=== PATIENT | female | born 1955 | race Caucasian/White ===

== ENCOUNTER → 2017-01-17 | Outpatient (CLI) | payer BC, OTHER ==
[~2017-01-17] MED LIST: B-COTAB18 PO; BUPR-79 PO; CHOL1000 PO; MRLP17 PO; RESV1POW PO; VITA400C15 PO; VITACAP26 PO
--- NOTE | 2017-01-17 12:42 | MAMMOGRAPHY REPORT ---
UNILATERAL RIGHT DIGITAL DIAGNOSTIC MAMMOGRAM TOMOSYNTHESIS WITH CAD AND TARGETED RIGHT ULTRASOUND: 01/17/2017 CLINICAL HISTORY: The patient reports a palpable lump with associated erythema in her right breast s november. The lump has decreased in size and is less erythematous since when she first felt it . TECHNIQUE: Breast tomosynthesis in addition to standard 2D mammography was performed. Current study was also evaluated with a Computer Aided Detection (CAD) system. Right CC and MLO 2-D and tomosynt hesis images were obtained. COMPARISON: Comparison is made to exams dated: 04/04/2016 mammogram, 03/31/2015 mammogram, 03/27/2014 m ammogram, 03/24/2013 mammogram, 03/13/2012 mammogram, and 03/10/2011 mammogram - [facility] enter. BREAST COMPOSITION: There are scattered areas of fibroglandular density in the right breast. FINDINGS: A triangle marker khan the site of the palpable lump in the right 6:00 breast. No suspic ious masses or other suspicious mammographic abnormalities are evident in this region. The remainde r of the right breast is stable compared to prior exams, without suspicious masses, calcifications, or areas of architectural distortion noted. Targeted ultrasound was performed of the area of the palpable lump pointed out by the patient, in th e right breast at approximately 5:00, 6 cm from the nipple. At the site of the palpable lump there is an intradermal ill-defined hypoechoic mass which measures 5 x 1 x 4 mm. Given that the mass is l ocated within the skin, it is benign and likely represents a resolving inflamed epidermal inclusion/ sebaceous cyst. No mass or other abnormality is seen within the underlying breast parenchyma. IMPRESSION: ACR BI-RADS CATEGORY 2: BENIGN, TARGETED ULTRASOUND ACR BI-RADS CATEGORY 2: BENIGN Intradermal 5 mm mass at the site of the palpable lump in the right breast. The mass is benign and likely represents a resolving inflamed epidermal inclusion/sebaceous cyst. There is no mammographic or targeted sonographic evidence of malignancy. Recommend clinical follow-up for the right breast palpable lump, and recommend routine bilateral screening mammograms which are due March 2017. The patient has been verbally notified of the results. Approximately 10% of breast cancers are not detected with mammography. A negative mammographic repor t should not delay biopsy if a clinically suggestive mass is present. Luisana Green M.D. ah/:01/17/2017 10:01:19 Pleat Patternmaker: Queenie SOLANO)(Angel), [facility] letter sent: Normal 1/2 BI-RADS Code: ACR BI-RADS Category 2: Benign Ultrasound BI-RADS: ACR BI-RADS Category 2: Benign
== END | disposition home or self-care (01) ==
LOC: C.MAMM 09:25
PROVIDERS: ATTEND Family Medicine
DX: N63 Unspecified lump in breast (principal)

== ENCOUNTER → 2017-02-06 | Outpatient (CLI) | payer BC, OTHER | END | disposition home or self-care (01) | LOC: C.RDSM 10:22 | PROVIDERS: ATTEND Physical Medicine & Rehabilitation Sports Medicine | DX: M79.645 Pain in left finger(s) (principal) ==

== ENCOUNTER → 2017-02-22 | Outpatient (CLI) | payer BC, OTHER ==
--- NOTE | 2017-02-27 07:26 | CODING QUERY MEDICAL NECESSITY ---
SUPPORTING DIAGNOSIS NEEDED Dr. Zhou, A supporting diagnosis is required for the test/procedure performed on this patient in order for us to be reimbursed by the patient's insurance. Please provide a supporting diagnosis for the following test/procedure listed below next to the test name along with your signature. *If there is no additional diagnosis for this patient that would support the following test/procedure please document that below next to the test/procedure. Test(s)/Procedure(s) that require a supporting diagnosis: * ([id number]) DXA BONE DENSITY, AXIAL DIAGNOSIS: DATE OF SERVICE: 02/22/17 Provider Signature: Date: Thank you Efrain Guerrero [facility] Information Management Once completed, please kindly fax back to [phone] For questions please call [phone]
== END | disposition home or self-care (01) ==
LOC: C.MAMM 10:06
PROVIDERS: ATTEND Physical Medicine & Rehabilitation Sports Medicine
DX: Z00.00 Encounter for general adult medical examination without abnormal findings (principal); Z78.0 Asymptomatic menopausal state

== ENCOUNTER → 2017-06-12 | Outpatient (CLI) | payer BC, OTHER ==
--- NOTE | 2017-06-13 16:02 | MAMMOGRAPHY REPORT ---
BILATERAL DIGITAL SCREENING MAMMOGRAM TOMOSYNTHESIS WITH CAD: 06/12/2017 CLINICAL HISTORY: Routine screening. Patient has no complaints. TECHNIQUE: Breast tomosynthesis in addition to standard 2D mammography was performed. Current study was also evaluated with a Computer Aided Detection (CAD) system. COMPARISON: Comparison is made to exams dated: 01/17/2017 mammogram, 04/04/2016 mammogram, 03/31/2015 m ammogram, 03/27/2014 mammogram, 03/24/2013 mammogram, and 03/13/2012 mammogram - [facility]. BREAST COMPOSITION: There are scattered areas of fibroglandular density in both breasts. FINDINGS: There are stable asymmetries in the left breast. No new suspicious mass, architectural di stortion or cluster of microcalcifications is seen bilaterally. IMPRESSION: ACR BI-RADS CATEGORY 1: NEGATIVE There is no mammographic evidence of malignancy. A 1 year screening mammogram is recommended. The pa tient will receive written notification of the results. Approximately 10% of breast cancers are not detected with mammography. A negative mammographic report should not delay biopsy if a clinically suggestive mass is present. Maria Esther Blackburn M.D. ay/:06/12/2017 18:59:40 Labor Utilization Superintendent: Ibis BLUE(Elver)(Angel)(BD), [facility] letter sent: Normal 1/2 BI-RADS Code: ACR BI-RADS Category 1: Negative
== END | disposition home or self-care (01) ==
LOC: C.MAMM 14:43
PROVIDERS: ATTEND Family Medicine
DX: Z12.31 Encounter for screening mammogram for malignant neoplasm of breast (principal)

== ENCOUNTER → 2018-01-21 | Outpatient (CLI) | payer BC, OTHER ==
--- NOTE | 2018-01-21 10:30 | DIAGNOSTIC IMAGING REPORT ---
LUMBAR SPINE MIN 4 VIEWS CLINICAL HISTORY: 62 years-old Female presenting with RIGHT LEG PAIN. TECHNIQUE: Frontal, bilateral oblique, lateral, and coned in lateral views of the lumbar spine were obtained. COMPARISON: None. FINDINGS: No significant scoliosis. Normal lumbar lordosis. Vertebral bodies maintain normal height and alignment. Intervertebral disc height loss at L5-S1, where there is suspected vacuum disc phenomenon. Osseous neural foraminal narrowing may be present at this level at L5-S1. The remaining levels demonstrate no osseous neural foraminal narrowing. No evidence of a compression deformity or subluxation. No pars defect. IMPRESSION: Osseous neural foraminal narrowing suspected at L5-S1, which demonstrates focal degenerative change. No radiographic evidence of acute osseous injury. Electronically signed by: Nils Delatorre M.D. 01/21/2018 10:29 AM Dictated Date/Time: 01/21/2018 10:28 AM
== END | disposition home or self-care (01) ==
LOC: C.RDSM 10:17
PROVIDERS: ATTEND Internal Medicine
DX: M79.604 Pain in right leg (principal)

== ENCOUNTER → 2018-06-14 | Outpatient (CLI) | payer OTHER ==
--- NOTE | 2018-06-14 14:31 | MAMMOGRAPHY REPORT ---
BILATERAL DIGITAL SCREENING MAMMOGRAM TOMOSYNTHESIS WITH CAD: 06/14/2018 CLINICAL HISTORY: Routine screening. Patient has no complaints. TECHNIQUE: Breast tomosynthesis in addition to standard 2D mammography was performed. Current study w as also evaluated with a Computer Aided Detection (CAD) system. COMPARISON: Comparison is made to exams dated: 06/12/2017 mammogram, 01/17/2017 mammogram, 04/04/2016 m ammogram, 03/31/2015 mammogram, 03/27/2014 mammogram, and 03/24/2013 mammogram - [facility]. BREAST COMPOSITION: There are scattered areas of fibroglandular density in both breasts. FINDINGS: No suspicious masses, calcifications, or areas of architectural distortion are noted in either breast . There has been no significant interval change compared to prior exams. IMPRESSION: ACR BI-RADS CATEGORY 1: NEGATIVE There is no mammographic evidence of malignancy. A 1 year screening mammogram is recommended.( 019) The patient will receive written notification of the results. Some breast cancers are not detected with mammography. A negative mammographic report should not javed y biopsy if a clinically suggestive mass is present. Luisana Green M.D. ah/:06/14/2018 12:38:29 Patient Biller: RT Sharan(R)(M)(BD), [facility] letter sent: Normal 1/2 BI-RADS Code: ACR BI-RADS Category 1: Negative
== END | disposition home or self-care (01) ==
LOC: C.MAMM 08:31
PROVIDERS: ATTEND Family Medicine
DX: Z12.31 Encounter for screening mammogram for malignant neoplasm of breast (principal)

== ENCOUNTER 2025-07-05 10:47 | Observation (INO) ==
--- NOTE | 2025-07-05 14:02 | Surgery Consultation ---
Date of Consultation July 05, 2025 History of Present Illness Reason for Consultation: Acute appendicitis Allergies Allergy/AdvReac Type Severity Reaction Status Date / Time nitrofurantoin AdvReac Mild Nausea Verified 01/14/25 11:03 Home Medications Medication Instructions Recorded Confirmed Type 3-in-1 Commode #1 ea 12/13/21 01/21/25 Rx acetaminophen 500 mg capsule 1,000 mg PO TID PRN Pain 02/20/23 01/21/25 History timolol maleate (PF) 0.5 % eye 1 drp ophthalmic (eye) BID 02/20/23 01/21/25 History drops in a dropperette rizatriptan PO PRN 09/22/24 01/21/25 History escitalopram oxalate 10 mg tablet 10 mg PO DAILY #30 tabs 11/19/24 01/21/25 Rx magnesium aspart,citrate,oxide 400 mg PO DAILY 11/19/24 01/21/25 History methylprednisolone 4 mg tablets in 4 mg PO .COMPLEX #21 ea 11/19/24 01/21/25 Rx a dose pack (Medrol (Yg)) riboflavin (vitamin B2) PO DAILY 11/19/24 01/21/25 History rizatriptan 10 mg disintegrating See Rx Instructions PO .COMPLEX 90 11/19/24 01/21/25 Rx tablet (Maxalt-RECREATION INSTRUCTOR) days #27 tabs galcanezumab-gnlm 120 mg/mL 120 mg subcut MONTHLY #1 mL 12/15/24 01/21/25 Rx subcutaneous pen injector (Emgality Pen) galcanezumab-gnlm 120 mg/mL 240 mg (2 mL) subcut ONCE #1 mL 12/15/24 01/21/25 Rx subcutaneous pen injector (Emgality Pen) vibegron 75 mg tablet (Gemtesa) 75 mg PO DAILY #90 tabs 01/14/25 01/21/25 Rx rimegepant 75 mg disintegrating 75 mg PO ONCE PRN migraine 01/21/25 Rx tablet (Nurtec ODT) headache 90 days #24 tabs topiramate 25 mg tablet 25 mg PO BID 01/21/25 01/21/25 History Patient History Medical History Difficult airway for intubation [place] Difficult Intubation Notice scanned into chart- patient has "anterior larynx"; she is an easy mask airway; easy intubation with Glidescope History of Mohs micrographic surgery for skin cancer DDD (degenerative disc disease) Lumbar area - R>L side Urinary incontinence History of basal cell carcinoma Glaucoma Follows routinely with eye doctor Surgical History Hx of right cataract extraction History of toe surgery History of hemorrhoidectomy History of laparoscopy History of total abdominal hysterectomy and bilateral salpingo-oophorectomy History of bladder surgery bladder sling History of colonoscopy Family History Other No family history of adverse response to anesthesia Social History Smoking Status: Never smoker Second Hand Exposure: No; Do You Dip or Chew Tobacco: No; Hx Alcohol Use: Yes Alcohol type: wine Hx Substance Use: No Preferred Language: Barbadian Communication Ability: Effective Visual Impairment: No Limitations Combined Rail Operator Required: No Beliefs That Will Affect Care: None Current Living Situation: Spouse Feels Safe at Home: Yes Assistive Devices: None Results & Data Vital Signs (Past 12 Hours) Vital Signs Temp Pulse Resp BP Pulse Ox O2 Del Method 07/05/25 13:43 38.1 C H 100 H 16 128/85 94 Room Air PG Care Time/CCT Total # of Minutes Spent Total Time Spent with Patient: Total time spent is greater than 50% in coordination of care (as documented) at patient's floor/unit and/or counseling patient: Coding
--- NOTE | 2025-07-05 14:22 | History & Physical Report ---
Date of Service July 05, 2025 Assessment & Plan (1) Acute appendicitis: Plan: Acute appendicitis Per [facility] CTA/P with acute appendicitis without perforation or abscess. Uncomplicated appendicitis which patient preferred to be seen at [facility]. Was on cefoxitin prior to transfer. Given devlopment of sx after recently completing Keflex course, will switch to Zosyn on admit. - WBC 11.9, hgb 14 at OSH. CBC, BMP, coags, lactic pending. Type and screen sent MIldly tachycardic, Temperature 38.1, mucous membranes dry, pulse 100, normotensive at bedside on arrival NSQIP risk assessment: Below average risk. Risk of serious complication 4.7%, any complication 6.7%. Risk of 0.1%, below average. She is functionally independent, denies tobacco use, denies hypertension/diabetes/COPD/dialysis/CKD. No prior history of VTE Will admit on Zosyn CT images pending upload Last ate 7:30 PM 07/04/2025. Last liquids was 10 ounces of water between 10 AM12 PM on 07/05/2025. - History of difficulty intubation at [facility], per note easy intubation via glidescope Surgery consulted Glaucoma Continue timolol drops Hx of Shingles - Of R neck. Resolved. No active lesions on exam LAKIA CPAP at bedtime Patient reports that other than abortive migraine medications are as needed and her timolol drops she takes no daily medications. She has been on a variety medications in the past for postconcussion headache however she does not take any of these medications currently. DVT prophylaxis: SCDs pending surgical intervention CODE STATUS: Full code, discussed with patient at bedside Diet: N.p.o. pending surgical evaluation (2) Postconcussive syndrome: Plan: With some chronic migraines which have not changed recently. Supportive care. Continue Tylenol (3) Sleep apnea: Plan: CPAP nightly (4) Difficult airway for intubation: Plan: Noted, anesthesia notified. Per outside chart review Admission and Anticipated Discharge Date Admission Date: July 05, 2025 History of Present Illness Primary Care Provider: Ann Garza DO Greer is a 70yo F who reports she has not been feeling well for awhile. 2 weeks ago she had a UTI and was on keflex. Sx improved. Had flu like symptoms the prior week. Afterwards had more headache and a slight dry cough for a few days. day had cookie dough and 'had a horrible night and stomach pain.' Thought she had food poisoing from cookie dough Sunday felt poor, pain continued. NOticed more tenderness and fullness in the abdomen Sat for the football game tried to make it through, no real change No improvement this morning and went to the ER Had some chills and maybe a fever . Did not check her temperature at home Appetite is poor last few days. No vomiting +constipation. No melena/BRBPR Medical History: - b/l knee replacements, hysterectomy, shingles twice in the past year despite vaccination, L frozen shoulder, Mohs surgery x2, and past concussion in October with some recurrent migraines intermittently since. No recent change. Endorses low grade headache and fatigue last few days. Headache feels different than migraine. Denies history of heart disease Denies of hypertension Hx of a stress test after a drug reaction with some transaminitis. This was n ormal per pt and she denies chest pain at any point. Denies leg swelling and orthopnea No kidney disease No history of DM No Fhx of VTE/PE. No personal history of VTE Med review: Eye drops atenolol No longer on lexapro Has rizatryptan as needed No longer takes nurtec No longer takes topamax No longer on vibegron No food since last night at 7:30pm was last food (3 chicken wings and some fries) Had small amount of bottled water today between 10am-12pm drank ~10 oz in total Medical History: Reviewed Medications: Reviewed Surgical History: Reviewed Family history: Reviewed Allergies: Reviewed. Transaminitis to nitrofurantoin. NO other drug allergies. Tolerates penicillin well with no reactions. Social History: ETOH rare, no longer drinks due to migraines. No tobacco use. Code Status: Full Code Allergies Allergy/AdvReac Type Severity Reaction Status Date / Time nitrofurantoin AdvReac Mild Nausea Verified 01/14/25 11:03 Home Medications Medication Instructions Recorded Confirmed Type 3-in-1 Commode #1 ea 12/13/21 01/21/25 Rx acetaminophen 500 mg capsule 1,000 mg PO TID PRN Pain 02/20/23 01/21/25 History timolol maleate (PF) 0.5 % eye 1 drp ophthalmic (eye) BID 02/20/23 07/05/25 History drops in a dropperette rizatriptan PO PRN 09/22/24 01/21/25 History escitalopram oxalate 10 mg tablet 10 mg PO DAILY #30 tabs 11/19/24 01/21/25 Rx magnesium aspart,citrate,oxide 400 mg PO DAILY 11/19/24 01/21/25 History methylprednisolone 4 mg tablets in 4 mg PO .COMPLEX #21 ea 11/19/24 01/21/25 Rx a dose pack (Medrol (Yg)) riboflavin (vitamin B2) PO DAILY 11/19/24 01/21/25 History rizatriptan 10 mg disintegrating See Rx Instructions PO .COMPLEX 90 11/19/24 01/21/25 Rx tablet (Maxalt-HEAD LOADER) days #27 tabs galcanezumab-gnlm 120 mg/mL 120 mg subcut MONTHLY #1 mL 12/15/24 01/21/25 Rx subcutaneous pen injector (Emgality Pen) galcanezumab-gnlm 120 mg/mL 240 mg (2 mL) subcut ONCE #1 mL 12/15/24 01/21/25 Rx subcutaneous pen injector (Emgality Pen) vibegron 75 mg tablet (Gemtesa) 75 mg PO DAILY #90 tabs 01/14/25 01/21/25 Rx rimegepant 75 mg disintegrating 75 mg PO ONCE PRN migraine 01/21/25 Rx tablet (Nurtec ODT) headache 90 days #24 tabs topiramate 25 mg tablet 25 mg PO BID 01/21/25 01/21/25 History Past Med/Surg History Problem List Acute appendicitis Analgesic rebound headache Post-concussion headache Postconcussive syndrome Sleep apnea on CPAP Migraine with aura and without status migrainosus 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) Incontinence (Chronic) Frequent UTI (Chronic) History of colon polyps Right knee DJD Encounter for pre-operative examination Degenerative arthritis of knee, bilateral Bone bruise Hallux rigidus, left foot Status post right knee replacement History of left knee replacement Medical History Difficult airway for intubation [place] Difficult Intubation Notice scanned into chart- patient has "anterior larynx"; she is an easy mask airway; easy intubation with Glidescope History of Mohs micrographic surgery for skin cancer DDD (degenerative disc disease) Lumbar area - R>L side Urinary incontinence History of basal cell carcinoma Glaucoma Follows routinely with eye doctor Surgical History Hx of right cataract extraction History of toe surgery History of hemorrhoidectomy History of laparoscopy History of total abdominal hysterectomy and bilateral salpingo-oophorectomy History of bladder surgery bladder sling History of colonoscopy Family History Other No family history of adverse response to anesthesia Social History Smoking Status: Never smoker Second Hand Exposure: No; Do You Dip or Chew Tobacco: No; Tobacco Cessation Education Requested by Patient: No Hx Alcohol Use: No Hx Substance Use: No Preferred Language: Latvian Communication Ability: Effective Visual Impairment: No Limitations Cloud Developer Required: No Beliefs That Will Affect Care: None Current Living Situation: Spouse Other Information That Helps Us Care for You: No Feels Safe at Home: Yes Safety Concerns: Feels Safe At This Time Assistive Devices: None Physical Exam Physical Exam: General: A&Ox3. NAD. Cooperative. HEENT: Atraumatic, normocephalic. Vision and hearing grossly intact. Pupils and reactive to light Pulm: CTAB A&P. -wheezes, -rales, -rhonchi. Symmetrical chest rise. No increased work of breathing. No respiratory distress. Cardiac: RRR, -mrg. Radial pulses intact and symmetrical. Abdominal: RLQ TTP. No rebound/guarding. BS+ Ext: warm, dry. No edema Results & Data Results & Data Vital Signs (Past 12 Hours) Vital Signs Temp Pulse Resp BP Pulse Ox O2 Del Method 07/05/25 13:43 38.1 C H 100 H 16 128/85 94 Room Air PG Care Time/CCT Total # of Minutes Spent Total Time Spent with Patient: Total time spent is greater than 50% in coordination of care (as documented) at patient's floor/unit and/or counseling patient: Coding Level of Care Code 58563 INT INP/OBS CARE 75MIN Diagnoses Acute appendicitis K35.80 Postconcussive syndrome F07.81 Sleep apnea G47.30 Difficult airway for intubation T88.4XXA
[2025-07-05] MEDS: ACETAMINOPHEN 1,000 MG/100 ML VIAL IV STA (14:54)
[2025-07-05 15:26] LABS: Hematocrit (blood only) 41.6 % (37.0-47.0); Hemoglobin 14.1 g/dl (12.0-16.0); Immature Granulocytes # (auto) 0.05 K/uL (0.01-0.20); Immature Granulocytes % (auto) 0.4 %; Mean Corpuscular Hemoglobin 29.8 pg (25.0-34.0); Mean Corpuscular Volume 87.9 fL (80.0-100.0); Platelet Count 216 K/uL (130-400); RDW Standard Deviation 42.9 fL (36.4-46.3); Red Blood Count 4.73 M/uL (4.20-5.40); White Blood Count 12.98 K/ul (4.8-10.8)
[2025-07-05] MEDS: LACTATED RINGER'S 500 ML IV ONE (15:33)
[2025-07-05] MEDS: PIPERACILLIN/TAZOBACTAM 4.5 GM/100 ML BAG IV ONE (15:34)
[2025-07-05] MEDS: TIMOLOL MALEATE 0.5% OP SOLN 5 ML BTL OP SCH (15:38)
--- NOTE | 2025-07-05 15:40 | Surgery Consultation ---
Date of Consultation July 05, 2025 Assessment & Plan (1) Acute appendicitis: This is a 70-year-old female with acute appendicitis as well as dehydration. Symptoms have been going on for few days now, given this, plan will be for surgical intervention today with laparoscopic appendectomy, possible open ap pendectomy. Patient will also be given IV antibiotics. Risks of procedure were discussed with the patient and they include bleeding, infection, injury to surrounding structures, appendiceal stump leak, need for further procedures, and cardiopulmonary events that can occur. Alternatives include no surgery, which the patient declines. Patient wishes to proceed with surgery. All questions were answered. History of Present Illness Reason for Consultation: appendicitis Attending Physician: Nils Horn MD History of Present Illness This is a very pleasant 70-year-old female who reports abdominal pain that began on with some vomiting and loose stools, initially patient felt this was due to food poisoning, but it progressively worsened and she had fevers and generalized malaise and the pain migrated from being diffuse to the right lower quadrant. Workup reveals acute appendicitis. The patient has a history of hysterectomy and diagnostic laparoscopy for scar tissue from hysterectomy. She is up-to-date with her colonoscopies with history of tubular adenoma. Allergies Allergy/AdvReac Type Severity Reaction Status Date / Time nitrofurantoin AdvReac Mild Nausea Verified 01/14/25 11:03 Home Medications Medication Instructions Recorded Confirmed Type 3-in-1 Commode #1 ea 12/13/21 01/21/25 Rx acetaminophen 500 mg capsule 1,000 mg PO TID PRN Pain 02/20/23 01/21/25 History timolol maleate (PF) 0.5 % eye 1 drp ophthalmic (eye) BID 02/20/23 07/05/25 History drops in a dropperette rizatriptan PO PRN 09/22/24 01/21/25 History escitalopram oxalate 10 mg tablet 10 mg PO DAILY #30 tabs 11/19/24 01/21/25 Rx magnesium aspart,citrate,oxide 400 mg PO DAILY 11/19/24 01/21/25 History methylprednisolone 4 mg tablets in 4 mg PO .COMPLEX #21 ea 11/19/24 01/21/25 Rx a dose pack (Medrol (Yg)) riboflavin (vitamin B2) PO DAILY 11/19/24 01/21/25 History rizatriptan 10 mg disintegrating See Rx Instructions PO .COMPLEX 90 11/19/24 01/21/25 Rx tablet (Maxalt-CAMERA TECHNICIAN) days #27 tabs galcanezumab-gnlm 120 mg/mL 120 mg subcut MONTHLY #1 mL 12/15/24 01/21/25 Rx subcutaneous pen injector (Emgality Pen) galcanezumab-gnlm 120 mg/mL 240 mg (2 mL) subcut ONCE #1 mL 12/15/24 01/21/25 Rx subcutaneous pen injector (Emgality Pen) vibegron 75 mg tablet (Gemtesa) 75 mg PO DAILY #90 tabs 01/14/25 01/21/25 Rx rimegepant 75 mg disintegrating 75 mg PO ONCE PRN migraine 01/21/25 Rx tablet (Nurtec ODT) headache 90 days #24 tabs topiramate 25 mg tablet 25 mg PO BID 01/21/25 01/21/25 History Patient History Medical History Difficult airway for intubation Morris Difficult Intubation Notice scanned into chart- patient has "anterior larynx"; she is an easy mask airway; easy intubation with Glidescope History of Mohs micrographic surgery for skin cancer DDD (degenerative disc disease) Lumbar area - R>L side Urinary incontinence History of basal cell carcinoma Glaucoma Follows routinely with eye doctor Surgical History Hx of right cataract extraction History of toe surgery History of hemorrhoidectomy History of laparoscopy History of total abdominal hysterectomy and bilateral salpingo-oophorectomy History of bladder surgery bladder sling History of colonoscopy Family History Other No family history of adverse response to anesthesia Social History Smoking Status: Never smoker Second Hand Exposure: No; Do You Dip or Chew Tobacco: No; Tobacco Cessation Education Requested by Patient: No Hx Alcohol Use: No Hx Substance Use: No Preferred Language: Indian Communication Ability: Effective Visual Impairment: No Limitations Factory Laborer Required: No Beliefs That Will Affect Care: None Current Living Situation: Spouse Other Information That Helps Us Care for You: No Feels Safe at Home: Yes Safety Concerns: Feels Safe At This Time Assistive Devices: None Review of Systems Review of Systems: All systems reviewed & are unremarkable except as noted in HPI & below Physical Exam Constitutional: WD/WN, vitals as above Eyes: PERRL, conjunctivae normal, anicteric sclerae ENMT: external ear and nose normal, oropharynx normal Neck: trachea midline, no thyromegaly Respiratory: Normal respiratory effort Cardiovascular: Slightly tachycardic, slightly febrile Gastrointestinal (Abdomen): Abdomen is soft and nondistended with tenderness in the right lower quadrant on palpation without peritoneal signs Musculoskeletal: No concerning findings Skin: no rashes, warm and dry Neurologic: Appears to be grossly neurologically intact Psychiatric: A+Ox3, euthymic affect Results & Data Vital Signs (Past 12 Hours) Vital Signs Temp Pulse Resp BP Pulse Ox O2 Del Method 07/05/25 13:43 38.1 C H 100 H 16 128/85 94 Room Air Sodium 141 mmol/L (136-145) 09/11/24 Potassium 4.3 mmol/L (3.5-5.1) 09/11/24 Chloride 107 mmol/L (98-107) 09/11/24 Carbon Dioxide 29 mmol/L (21-32) 09/11/24 Anion Gap 5 (3-11) 09/11/24 BUN 13 mg/dl (6-23) 09/11/24 Creatinine 0.68 mg/dl (0.6-1.2) 09/11/24 eGFR 94.22 09/11/24 Est GFR ( Amer) 107.8 ml/min 07/09/24 Est GFR (Non-Af Amer) 93.0 ml/min 07/09/24 BUN/Creatinine Ratio 19.1 (10-20) 09/11/24 Glucose 92 mg/dl (70-99(Fasting)) 09/11/24 Calcium 9.8 mg/dl (8.6-10.3) 09/11/24 Total Bilirubin 0.4 mg/dl (0.2-1.0) 06/15/25 Direct Bilirubin 0.1 mg/dl (0-0.2) 06/15/25 AST 14 U/L (13-39) 06/15/25 ALT 12 U/L (7-52) 06/15/25 Alkaline Phosphatase 89 U/L (34-104) 06/15/25 Total Protein 7.3 gm/dl (6.0-8.3) 06/15/25 Albumin 4.0 gm/dl (3.4-5.0) 06/15/25 Globulin 2.9 gm/dl (2.5-4.0) 09/11/24 Triglycerides 75 mg/dl (0-150) 07/09/24 Cholesterol 178 mg/dl (0-200) 07/09/24 LDL Cholesterol, Calc 101 mg/dl 07/09/24 HDL Cholesterol 62 mg/dl 07/09/24 Cholesterol/HDL Ratio 2.9 (0-5) 07/09/24 PG Care Time/CCT Total # of Minutes Spent Total Time Spent with Patient: Total time spent is greater than 50% in coordination of care (as documented) at patient's floor/unit and/or counseling patient: Coding Level of Care Code 37052 INT INP/OBS CARE 2/55MIN Diagnoses Acute appendicitis K35.80
[2025-07-05 15:42] LABS: Alanine Aminotransferase 13.0 U/L (7-52); Albumin Globulin Ratio 1.2 (0.9-2); Alkaline Phosphatase 92.0 U/L (34-104); Anion Gap 8.0 (3-11); Bilirubin,Total 0.9 mg/dl (0.2-1.0); Blood Urea Nitrogen 7.0 mg/dl (6-23); Calcium 9.3 mg/dl (8.6-10.3); Carbon Dioxide 25.0 mmol/L (21-32); Chloride 103.0 mmol/L (98-107); Creatinine Clr Calc Pharmacy 121.5 ml/min; Globulin 3.5 gm/dl (2.5-4.0); Glucose 105.0 mg/dl (70-99(Fasting)); Potassium 4.1 mmol/L (3.5-5.1); Sodium 136.0 mmol/L (136-145); Total Protein 7.6 gm/dl (6.0-8.3)
[2025-07-05 15:52] LABS: INR 1.0 (0.9-1.1); Partial Thromboplastin Time 31 Seconds (21-31); Prothrombin Time 11.0 Seconds (9.0-12.0)
[2025-07-05] MEDS ORDERED: MIDAZOLAM HCL 1 MG/ML 2ML VIAL ONE (15:53)
[2025-07-05] MEDS ORDERED: ROCURONIUM BROMIDE 10 MG/ML 5 ML VIAL IV ONE (15:57)
--- NOTE | 2025-07-05 16:41 | Anesthesiology Consultation ---
Date of Service July 05, 2025 Assessment & Plan Chart Review Chart Review: Acceptable Risk for Surgery Consults Requested none History Surgery Operation Date: 07/05/25 15:30 Proposed Procedures p Laparoscopic Appendectomy - Tika Sotomayor MD Height/Weight Height: 5 ft 7 in Weight: 95.028 kg Allergies Allergy/AdvReac Type Severity Reaction Status Date / Time nitrofurantoin AdvReac Mild Nausea Verified 01/14/25 11:03 Medications Home Medications Medication Instructions Recorded Confirmed Last Taken 3-in-1 Commode #1 ea 12/13/21 01/21/25 Unknown timolol maleate (PF) 0.5 % eye 1 drp ophthalmic (eye) BID 02/20/23 07/05/25 07/04/25 21:00 drops in a dropperette rimegepant 75 mg disintegrating 75 mg PO ONCE PRN migraine 01/21/25 Unknown tablet (Nurtec ODT) headache 90 days #24 tabs Active Medications Generic Name Dose Route Start Last Admin Trade Name Freq PRN Reason Stop Dose Admin Timolol Maleate 1 drops 07/05/25 14:45 07/05/25 15:38 Timolol Maleate 0.5% Op Soln 5 Ml Btl OP 08/04/25 14:44 1 drops BID ERWIN Administration NPO Date Last Intake of Fluids: 07/05/25 Time Last Intake of Fluids: 12:00 Date Last Intake of Solids: 07/04/25 Time Last Intake of Solids: 19:00 Past Medical History Medical History Difficult airway for intubation Trisha Difficult Intubation Notice scanned into chart- patient has "anterior larynx"; she is an easy mask airway; easy intubation with Glidescope History of Mohs micrographic surgery for skin cancer DDD (degenerative disc disease) Lumbar area - R>L side Urinary incontinence History of basal cell carcinoma Glaucoma Follows routinely with eye doctor Past Family History Family History Other No family history of adverse response to anesthesia Past Surgical History Surgical History Hx of right cataract extraction History of toe surgery History of hemorrhoidectomy History of laparoscopy History of total abdominal hysterectomy and bilateral salpingo-oophorectomy History of bladder surgery bladder sling History of colonoscopy Social History Smoking Status: Never smoker Do You Dip or Chew Tobacco: No Hx Alcohol Use: No Alcohol type: wine alcohol intake frequency: a few times a month Hx Substance Use: No substance use type: does not use Physical Exam Vital Signs Last Vital Signs Temp 38.1 C H 07/05/25 13:43 Pulse 100 H 07/05/25 13:43 Resp 16 07/05/25 13:43 BP 128/85 07/05/25 13:43 Pulse Ox 94 07/05/25 13:43 O2 Del Method Room Air 07/05/25 13:43 Testing Laboratory Results 07/05/25 15:01 07/05/25 15:01 PT 11.0 Seconds (9.0-12.0) 07/05/25 15:01 INR 1.0 (0.9-1.1) 07/05/25 15:01 APTT 31 Seconds (21-31) 07/05/25 15:01 Blood Type A Positive 07/05/25 15:05 Antibody Screen NEGATIVE 07/05/25 15:05
[2025-07-05] MEDS: BUPIVACAINE/EPINEPHRINE 0.5% MPF 1:200,000 30 ML VIAL ONE (16:44)
[2025-07-05] MEDS ORDERED: ONDANSETRON INJ 2 MG/ML 2 ML VIAL ONE (16:55)
[2025-07-05] MEDS ORDERED: PROPOFOL IV EMULSION 10 MG/ML 20 ML VIAL IV ONE (16:55)
[2025-07-05] MEDS ORDERED: SUGAMMADEX SODIUM 200 MG/2 ML VIAL IV ONE (16:55)
[2025-07-05] MEDS ORDERED: LIDOCAINE 2% 2 ML VIAL/AMP(20MG/ML) INFIL ONE (16:55)
[2025-07-05] MEDS ORDERED: PHENYLEPHRINE 100MCG/ML 5ML SYR ONE (16:55)
[2025-07-05] MEDS ORDERED: DEXAMETHASONE SOD INJ 4 MG/ML VIAL ONE (16:55)
[2025-07-05] MEDS: LIDOCAINE 1% LOCAL 20 ML VIAL ONE (16:56)
[2025-07-05] MEDS ORDERED: ONDANSETRON INJ 2 MG/ML 2 ML VIAL IV PRN (16:58)
[2025-07-05] MEDS ORDERED: HYDROmorphone INJ 1 MG/ML SYRINGE IV PRN (16:58)
[2025-07-05] MEDS ORDERED: PROMETHAZINE HCL 6.25 MG in SODIUM CHLORIDE 0.9% 50 ML IV PRN (16:58)
[2025-07-05] MEDS ORDERED: ATROPINE SULFATE 0.1 MG/ML 10ML SYR IV PRN (16:58)
[2025-07-05] MEDS ORDERED: KETOROLAC 30 MG/ML VIAL ONE (17:00)
--- NOTE | 2025-07-05 17:04 | Post Operative Brief Note ---
PG Immediate Post Op with CF Date of Surgery July 05, 2025 Pre & Post Diagnosis Operation Date: 07/05/25 15:30 Pre-Op Diagnosis: Acute appendicitis Post-Op Diagnosis: Acute appendicitis I identified the patient and participated in the time-out.: Yes Procedure Operation Date: 07/05/25 15:30 Actual Procedures p Laparoscopic Appendectomy - Tika Sotomayor MD CPT 00518 Surgeon Tiak Sotomayor MD Crimping Machine Operator Jackson Mcbride PA-C Estimated Blood Loss 10 Findings Consistent with Post-Op Diagnosis acute non perforated appendicitis Specimens Specimen Description: A: Appendix Anesthesia Type General Complications NONE Disposition Disposition: Recovery Room
[2025-07-05] MEDS: ACETAMINOPHEN 1,000 MG/100 ML VIAL IV PRN (17:35)
--- NOTE | 2025-07-05 18:02 | Anesthesiology Progress Note ---
Date of Service July 05, 2025 Anesthesia Post Procedure Vital Signs Vital Signs: Temp Pulse Pulse Resp BP Pulse Ox O2 Del Method 07/05/25 17:58 37.1 C 65 16 121/77 96 Nasal Cannula 07/05/25 17:45 68 16 117/74 97 Nasal Cannula 07/05/25 17:35 37.2 C 67 18 121/71 97 Nasal Cannula 07/05/25 17:25 69 20 131/68 97 Oxymask 07/05/25 17:15 36.7 C 72 18 122/69 98 Oxymask 07/05/25 13:43 38.1 C H 100 H 16 128/85 94 Room Air O2 Flow Rate 07/05/25 17:58 2 07/05/25 17:45 2 07/05/25 17:35 2 07/05/25 17:25 2 07/05/25 17:15 6 07/05/25 13:43 Pain Intensity Abdomen: Pain Intensity: 3 Transfer of Care Handoff Completed per policy Notes Mental Status: alert / awake / arousable and participated in evaluation Patient Amnestic to Procedure: Yes Nausea / Vomiting: adequately controlled Pain: adequately controlled Airway Patency, RR, SpO2: stable & adequate BP & HR: stable & adequate Hydration State: stable & adequate Anesthetic Complications: no major complications apparent
[2025-07-05] MEDS: LACTATED RINGER'S 1,000 ML IV SCH (18:06)
--- NOTE | 2025-07-05 18:06 | Operative Report ---
PG Post Operative Report Pre & Post Diagnosis Operation Date: 07/05/25 15:30 Pre-Op Diagnosis: Acute appendicitis Post-Op Diagnosis: Acute appendicitis I identified the patient and participated in the time-out.: Yes Procedure Operation Date: 07/05/25 15:30 Actual Procedures p Laparoscopic Appendectomy - Tika Sotomayor MD CPT: 47325 Surgeon Tika Sotomayor MD Assistant Kitchen Manager Jackson Mcbride PA-C Estimated Blood Loss 10 Findings Consistent with Post-Op Diagnosis Specimens Appendix Anesthesia Type General Complications Risks include bleeding, infection, injury to surrounding structures, need for further procedures, appendiceal stump leak, cardiopulmonary events that can occur, wound issues to include wound dehiscence, infection, and hernia. Disposition Disposition: Recovery Room Indications This is a 70-year-old female with a history of abdominal pain, workup reveals acute appendicitis. Patient was admitted and started on IV antibiotics and now presents for laparoscopic appendectomy, possible open appendectomy and all other indicated procedures. Description of Procedure Informed consent was verified and site of surgery was verified and the patient was brought back to operating room. General anesthesia was administered. The patient's abdomen was prepped and draped in the usual sterile fashion. A surgical timeout was performed and there were no issues. Next, a left upper quadrant incision was made and a Veress needle was inserted in the abdomen was insufflated to about 15 mmHg. Next, a 30 degree laparoscope was inserted with a 5 mm trocar using the Optiview technique via this left upper quadrant incision. There was no evidence of any injuries to any structures from entry into the abdominal cavity. The abdomen was inspected, next, a 12 mm port was placed under direct vision in the left lower quadrant and a 5 mm port was placed suprapubically. These were under direct vision. Next, the right lower quadrant was examined and the cecum was identified and the appendix was identified. It was seen to be inflamed and thickened. It did not appear to be perforated. It was gently grasped and the mesentery was divided using the LigaSure device. The base of the appendix was then transected using the laparoscopic JACKIE stapler, griffith carrie with care taken to avoid narrowing of the ileocecal valve and care taken to ensure that the appendix was transected at its base going into the cecum. Next, the appendix was placed in Endo Catch bag and removed. The abdomen was irrigated and suctioned. The pelvis was irrigated and suctioned. The staple line was examined, there was no evidence of any bleeding or succus drainage. There was no evidence of any narrowing of the ileocecal valve. Next, using the Mariano Maza device, the fascia of the left lower quadrant port was closed under direct vision with 0 Vicryl suture. The other ports were removed and the wounds were closed using 4 Monocryl in a subcuticular fashion with sterile dressing applied, local anesthesia was infiltrated, and the patient was weaned off anesthesia and transferred to recovery in stable condition. She tolerated the procedure well. I attest to the content of the Intraoperative Record and any orders documented therein. Any exceptions are noted below.
[2025-07-05] MEDS ORDERED: HYDROmorphone INJ 0.5 MG/0.5 ML SYR IV PRN (18:09)
[2025-07-05] MEDS: COUGH DROP (SUGAR FREE) LOZ 24 LOZ/1 BOX BUCCAL PRN (18:27)
[2025-07-05] MEDS: PIPERACILLIN/TAZOBACTAM 4.5 GM/100 ML BAG IV SCH (20:14)
[2025-07-05] MEDS ORDERED: ACETAMINOPHEN 1,000 MG/100 ML VIAL IV PRN (22:00)
[2025-07-06 05:06] VITALS: PULSE 55
[2025-07-06 07:52] VITALS: BP 132/73; RESP 16; TEMP 97.5; O2SAT 94
[2025-07-06] MEDS: ACETAMINOPHEN 325 MG TAB PO PRN (07:54)
[2025-07-06 08:08] LABS: Hematocrit (blood only) 36.9 % (37.0-47.0); Hemoglobin 11.7 g/dl (12.0-16.0); Immature Granulocytes # (auto) 0.13 K/uL (0.01-0.20); Immature Granulocytes % (auto) 1.0 %; Mean Corpuscular Hemoglobin 28.5 pg (25.0-34.0); Mean Corpuscular Volume 89.8 fL (80.0-100.0); Platelet Count 223 K/uL (130-400); RDW Standard Deviation 43.8 fL (36.4-46.3); Red Blood Count 4.11 M/uL (4.20-5.40); White Blood Count 12.95 K/ul (4.8-10.8)
[2025-07-06 08:40] LABS: Anion Gap 6.0 (3-11); Blood Urea Nitrogen 8.0 mg/dl (6-23); Calcium 9.0 mg/dl (8.6-10.3); Carbon Dioxide 29.0 mmol/L (21-32); Chloride 102.0 mmol/L (98-107); Creatinine Clr Calc Pharmacy 105.0 ml/min; Glucose 118.0 mg/dl (70-99(Fasting)); Potassium 4.0 mmol/L (3.5-5.1); Sodium 137.0 mmol/L (136-145)
--- NOTE | 2025-07-06 10:55 | Communication Note ---
Date of Service: July 06, 2025 By CMS guidelines, a determination that the admission or continued stay is not medically necessary has been made by a member of the UR committee and a physician for this hospital stay, therefore a Code 44 will be completed and the Inpatient admission will be changed to outpatient.
--- NOTE | 2025-07-06 13:54 | Surgery Progress Note ---
Date of Service July 06, 2025 Assessment & Plan (1) Acute appendicitis: Plan: Patient is POD#1 s/p laparoscopic appendectomy by Dr. Sotomayor. - Patient doing well this morning from a surgical standpoint - Tolerating diet without any issues and pain currently well-controlled - Discussed postoperative instructions with the patient. From a surgical perspective patient is okay for discharge. She will follow-up with Dr. Sotomayor in approximately 2 weeks for her postoperative checkup. Admission and Anticipated Discharge Date Admission Date: July 05, 2025 Subjective Patient seen and examined this morning. Patient doing well, no complaints, pain controlled Tolerating diet this morning without issues or worsening abdominal pain, nausea or vomiting. Vital signs stable, afebrile, WBC 12.9 this morning Physical Exam Constitutional: WD/WN, vitals as above Respiratory: normal respiratory effort, lungs clear to auscultation Cardiovascular: Rate/Rhythm: regular rate Gastrointestinal (Abdomen): Abdomen soft, nondistended, appropriate tenderness palpation over surgical sites. Surgical sites are clean, dry, intact with Dermabond in place. No overlying signs of infection. Skin: no rashes, warm and dry Results & Data Vital Signs (Past 12 Hours) Vital Signs Temp Pulse Pulse Resp BP BP Pulse Ox 07/06/25 06:51 36.4 C L 55 L 16 132/73 94 07/06/25 05:05 36.8 C 55 L 18 115/73 95 07/06/25 02:38 63 21 95 O2 Del Method FiO2 07/06/25 06:51 Room Air 07/06/25 05:05 Room Air 07/06/25 02:38 21 PG Care Time/CCT Total # of Minutes Spent Total Time Spent with Patient: Total time spent is greater than 50% in coordination of care (as documented) at patient's floor/unit and/or counseling patient: Coding [place] [address] Post Operative Follow-Up Patient Type Established History Problem Focused Exam Problem Focused Medical Decision Making Straight Forward Diagnoses Acute appendicitis K35.80
--- NOTE | 2025-07-06 15:12 | Discharge Summary ---
Discharge Summary Date of Service July 06, 2025 Principal Dx & Hospital Course #1 = Principal Diagnosis (1) Acute appendicitis: (2) Acute UTI: (3) Postconcussive syndrome: (4) Sleep apnea: Plan 70-year-old woman past medical history of frequent UTIs, bilateral knee replacements, hysterectomy, shingles twice in the past year despite vaccination, left frozen shoulder, Mohs surgery x 2, and past concussion in October with some recurrent migraines intermittently since. She was transferred from [facility] with acute appendicitis per patient preference. Per [facility] CTA/P with acute appendicitis without perforation or abscess. #Acute appendicitis Early Sepsis, POA - with mild tachycardia, Temperature 38.1, mucous membranes dry, pulse 100, normotensive at bedside on arrival Treated with IV Zosyn preoperatively. Given adequate source control and no perforation of appendix, no further antibiotics needed for appendicitis General Surgery consulteds/p laparoscopic appendectomy. Operative report indicates no perforation of appendix, EBL 10 cc, no complications noted Well-tolerating diet postoperatively Pain regimen: Tylenol as needed for mild-moderate pain, oxycodone 5 mg Q4h PRN severe pain Follow-up with general surgery in 2 weeks postop #UTI - patient reports UA was obtained at [facility] and indicated UTI. Has history of recurrent UTIs - No urine culture to review - Prescribed Bactrim 800-160 mg BID x 3 days on discharge #Glaucoma Continue timolol drops #LAKIA CPAP at bedtime #Hx of Shingles - Of R neck. Resolved. No active lesions on exam #Postconcussive syndrome With some chronic migraines which have not changed recently. Supportive care. Continue Tylenol DVT prophylaxis: SCDs Dispo: Discharged home 07/06 Notes For Next Care Provider Medication Changes From Visit Oxycodone 5 mg every 4 hours as needed for severe pain Bactrim 388172 twice daily x 3 days for UTI Admission HPI Per Admitting Provider Greer is a 70yo F who reports she has not been feeling well for awhile. 2 weeks ago she had a UTI and was on keflex. Sx improved. Had flu like symptoms the prior week. Afterwards had more headache and a slight dry cough for a few days. Sunday had cookie dough and 'had a horrible night and stomach pain.' Thought she had food poisoing from cookie dough Hemal felt poor, pain continued. NOticed more tenderness and fullness in the abdomen Sat for the football game tried to make it through, no real change No improvement this morning and went to the ER Had some chills and maybe a fever . Did not check her temperature at home Appetite is poor last few days. No vomiting +constipation. No melena/BRBPR Medical History: - b/l knee replacements, hysterectomy, shingles twice in the past year despite vaccination, L frozen shoulder, Mohs surgery x2, and past concussion in October with some recurrent migraines intermittently since. No recent change. Endorses low grade headache and fatigue last few days. Headache feels different than migraine. Denies history of heart disease Denies of hypertension Hx of a stress test after a drug reaction with some transaminitis. This was normal per pt and she denies chest pain at any point. Denies leg swelling and orthopnea No kidney disease No history of DM No Fhx of VTE/PE. No personal history of VTE Med review: Eye drops atenolol No longer on lexapro Has rizatryptan as needed No longer takes nurtec No longer takes topamax No longer on vibegron No food since last night at 7:30pm was last food (3 chicken wings and some fries) Had small amount of bottled water today between 10am-12pm drank ~10 oz in total Medical History: Reviewed Medications: Reviewed Surgical History: Reviewed Family history: Reviewed Allergies: Reviewed. Transaminitis to nitrofurantoin. NO other drug allergies. Tolerates penicillin well with no reactions. Social History: ETOH rare, no longer drinks due to migraines. No tobacco use. Code Status: Full Code Discharge Exam General: No acute distress, nondiaphoretic, well-developed, well-nourished. Skin: Warm, dry. No rashes or peripheral edema noted. HEENT: PERRLA. Tympanic membranes pearly hodgson bilaterally. Moist mucous memb ranes. Cardiac: Regular rate and rhythm without murmurs gallops or rubs. Pulm: Clear to auscultation bilaterally without wheezes, rales or rhonchi. Normal respiratory effort. 94% on room air. Abdominal: Soft, nondistended. Tenderness around surgical sites. Surgical sites clean, dry, intact with Dermabond in place. Neuro: A&O x3. No focal neurological deficits. Discharge Plan Discharge Items Patient Disposition: Home - Self-Care Reason For Visit: ACUTE APPENDICITIS Discharge Diagnosis: Appendicitis Activity: Per Instructions section Bathing Comment: you may shower. do NOT soak in bath tubs, hot tubs, or pools x2 weeks Non-emergency contact: Primary Care Provider and Surgeon Call non-emergency contact if: your pain is not controlled, your temperature is above 101.5, your wound has increased redness and your wound has increased drainage Follow-up/Referrals: Ann Garza DO [Primary Care Provider] - 07/13/25 1:25 pm (Follow-up in 1-2 weeks) Tika Sotomayor MD [Surgeon] - 07/20/25 9:00 am (f/u with Dr. Sotomayor in 2 weeks for your post-op check up) Diet: Regular Addtl Attending Provider Instructions: Greer, You were admitted to the hospital with acute appendicitis. This was surgically addressed with a laparoscopic appendectomy. You tolerated the surgery well with no complications. You will continue on oral antibiotics for your UTI, but no further antibiotics are needed for your appendicitis now that your appendix has been removed. Upon discharge from the hospital: * Take Tylenol and/or ibuprofen as needed for mild pain. * Take oxycodone 5 mg every 4 hours as needed for severe pain. Do not drive or operate heavy machinery while taking oxycodone as it is a narcotic pain medication. * Take Bactrim (oral antibiotic) twice daily x 3 days for your UTI. * Follow the instructions from your surgical team listed below. * Follow-up with your surgical team as directed. * Follow-up with your PCP in 1-2 weeks. Please return to the hospital if you experience any of the following: Fever of 101 F or higher, persistent nausea with vomiting, confusion, lightheadedness, chest pain, difficulty breathing, passing out, or any other symptoms concerning for you. It was a pleasure taking care of you while you were in the hospital! Addtl Court Advocate Provider Instructions: SPECIAL CARE INSTRUCTIONS: * Your incisions have skin glue, called Dermabond, over them. You may shower with this on, do NOT pick at this. It will fall off on it's own within the next 7-10 days. * You may shower on 07/06/2025 . NO soaking in bath tubs, hot tubs, or pools for 2 weeks * No lifting greater than 10lbs. No exercise until cleared by surgeon. Light walking is accepted. * No driving while taking narcotic pain medication * No drinking alcohol while taking narcotic pain medication * May use Ibuprofen/Tylenol over the counter for pain as tolerated. Do not exceed 3grams of Tylenol per 24 hours * Expect some swelling and bruising. * Diet - resume your regular diet CALL YOUR DOCTOR IF: * Temperature above 101 degrees, nausea/vomiting, fever/chills * Pain not relieved by pain medicine ordered * There is increased drainage or redness from any incision * You have any unanswered questions or concerns [phone]. FOLLOW UP VISIT: If not already scheduled, please call the office for a follow-up visit. Office Pending Studies at Discharge: Yes Studies:: surgical pathology Stand-Alone Forms: My [facility] [employer], Pain - Opioid Pain Management, Smoking Cessation Medications and DC Order Prescriptions: New oxycodone 5 mg Tablet 5 mg PO Q4H PRN (Reason: pain) Qty: 14 0RF sulfamethoxazole-trimethoprim [Bactrim DS] 800-160 mg tablet 1 tab PO BID Qty: 6 0RF Continued (DME) 3-in-1 Commode Misc See Rx Instructions .MEDSUPPLY Qty: 1 0RF Rx Instructions: As directed Nurtec ODT 75 mg tablet,disintegrating 75 mg PO ONCE PRN (Reason: migraine headache) 90 Days Qty: 24 2RF timolol maleate (PF) 0.5 % Dropperette 1 drp OPHTHALMIC (EYE) BID Rx Instructions: Both eyes Discharge Orders: Discharge Order (Routine); Ordered 07/06/25 Ordered By: Vickie Black/Other Patient Handouts: Appendectomy Admission Data Admit Date/Time: 07/05/25 14:22 Attending Provider: Thuan Pimentel Admit Provider: Nils Horn Primary Care Provider: Ann Garza Other Providers: Duglas Dexter; Tika Sotomayor Other Interventions: Discharge Summary Assessment (RN) Last Done: 07/06/25 10:54 Hospital Stay Data Consultations 07/05/25 14:44 Consult Anesthesiology Routine Consult General Surgery Routine Procedures Performed Operation Date: 07/05/25 15:30 Actual Procedures p Laparoscopic Appendectomy - Tika Sotomayor MD Pending Results Patient Have Any Pending Studies at Discharge: Yes Discharge Instructions Given to Patient (Per Discharging Provider) Roque Butterfield were admitted to the hospital with acute appendicitis. This was surgically addressed with a laparoscopic appendectomy. You tolerated the surgery well with no complications. You will continue on oral antibiotics for your UTI, but no further antibiotics are needed for your appendicitis now that your appendix has been removed. Upon discharge from the hospital: * Take Tylenol and/or ibuprofen as needed for mild pain. * Take oxycodone 5 mg every 4 hours as needed for severe pain. Do not drive or operate heavy machinery while taking oxycodone as it is a narcotic pain medication. * Take Bactrim (oral antibiotic) twice daily x 3 days for your UTI. * Follow the instructions from your surgical team listed below. * Follow-up with your surgical team as directed. * Follow-up with your PCP in 1-2 weeks. Please return to the hospital if you experience any of the following: Fever of 101 F or higher, persistent nausea with vomiting, confusion, lightheadedness, chest pain, difficulty breathing, passing out, or any other symptoms concerning for you. It was a pleasure taking care of you while you were in the hospital! Total Time Total Time Spent Total Time Spent (In Minutes): Greater than 30 minutes spent completing this discharge process including direct patient care, medication reconciliation, documentation, review of labs and images, and coordination of care. Coding Level of Care Code 85006 INP/OBS DISCH >30 MIN Diagnoses Acute appendicitis K35.80 Acute UTI N39.0 Postconcussive syndrome F07.81 Sleep apnea G47.30
== END 2025-07-06 11:55 | disposition home or self-care (01) ==
LOC: 3N → PREINTOOBSV 11:01 → SUATTDRO 14:22